=== PATIENT | female | born 1965 | race Two or more races ===

== ENCOUNTER 2017-02-27 23:29 | Emergency (ER) | payer OTHER ==
[2017-02-27] MEDS ORDERED: methylPREDNISolone SOD SUCC 125 MG/2 ML VIAL IVP ONE (23:46)
[2017-02-27] MEDS ORDERED: RANITIDINE 50 MG/2 ML VIAL IVP ONE (23:46)
[2017-02-27] MEDS ORDERED: NS 1,000 ML IV ONE (23:46)
--- NOTE | 2017-02-27 23:47 | EDPHY ---
H & P Time Seen by Provider: 02/27/17 23:42 HPI/ROS: This is a 51-year-old female presenting to the emergency department complaining of skin irritation and rash. Patient states her back was itching around 1500 today, since then the rash has worsening to her upper arms and her chest. Patient reports not sure which she came in contact with, denies any shortness of breath or wheezing. Has not taken any vmwa-tro-rfmdfiy medication. No other complaints REVIEW OF SYSTEMS: Constitutional: No fever chills Eyes: No blurred vision ENT: No sore throat Respiratory: No cough or shortness of breath Gastrointestinal: No nausea vomiting Skin: rash hives Neurological: No headache or dizziness Smoking Status: Never smoked Physical Exam: CONSTITUTIONAL: patient appeared well nourished, non-ill appearing and normally developed. No acute distress. Vital signs as documented. HEENT: Normocephalic atraumatic. Oropharynx normal no angioedema noted NECK: Supple, FROM without pain RESP: Non-labored resp effort, airway patent, CTAB CARDIAC: RRR w/o murmur, donis. Normal S1/S2 NEURO: AAOx3 SKIN: Diffuse hives noted to trunk and upper extremities PSYCH: Normal affect, calm, no distress, acting appropriate Constitutional: Initial Vital Signs Temperature (C) 36.5 C 02/27/17 23:32 Heart Rate 70 02/27/17 23:32 Respiratory Rate 16 02/27/17 23:32 Blood Pressure 130/83 H 02/27/17 23:32 O2 Sat (%) 98 02/27/17 23:32 O2 Delivery Mode Nasal Cannula Allergies/Adverse Reactions: No Known Allergies Allergy (Unverified 02/27/17 23:35) Home Medications: Medication Instructions Recorded predniSONE 50 mg PO DAILY #5 tablet 02/28/17 Medical Decision Making ED Course/Re-evaluation: Discussed plan of care: IV fluids, IV Solu-Medrol, IV Benadryl, IV ranitidine 0030: Re-evaluation, patient reports feeling better decrease in skin irritation no shortness of breath. 0035: I recommended when she gets home wash all of her clothes or any bedding that may have come into contact which caused the initial reaction. Discharge home---> stable, discussed discharge instructions with patient Differential Diagnosis: Differential diagnosis considered but not limited to anaphylaxis, angioedema and cellulitis - Data Points Medications Given: Discontinued Medications Diphenhydramine HCl (Benadryl Injection) 50 mg IVP EDNOW ONE Stop: 02/27/17 23:47 Last Admin: 02/28/17 00:06 Dose: 50 mg Sodium Chloride (Ns) 1,000 mls @ 0 mls/hr IV ONCE ONE PRN Reason: Wide Open Stop: 02/27/17 23:47 Last Admin: 02/28/17 00:06 Dose: 1,000 mls Methylprednisolone Sodium Succinate (Solu-Medrol) 125 mg IVP EDNOW ONE Stop: 02/27/17 23:47 Last Admin: 02/28/17 00:07 Dose: 125 mg Ranitidine HCl (Zantac) 50 mg IVP EDNOW ONE Stop: 02/27/17 23:47 Last Admin: 02/28/17 00:06 Dose: 50 mg Departure - Departure Disposition: Home, Routine, Self-Care Clinical Impression: Urticaria Allergic reaction Qualifiers: Encounter type: initial encounter Qualified Code(s): T78.40XA - Allergy, unspecified, initial encounter Condition: Good Instructions: Urticaria (ED), Cold Compress or Soak (ED), General Allergic Reaction (ED) Additional Instructions: 1. Continue taking Benadryl 25-50 mg every 6-8 hours as needed 2. You can also take Pepcid 40 mg daily for the next 5 days this access a histamine ojhana to decrease skin irritation 3. You have been given a prescription for prednisone this will help decrease the inflammatory response take this for the next 5 days 4. If any symptoms worsen such as: Increasing rash, shortness of breath, any facial swelling return to the emergency department Referrals: NONE *PRIMARY CARE P,. [Primary Care Provider] - As per Instructions [facility],. [Clinic] - As per Instructions Prescriptions: predniSONE 50 mg PO DAILY #5 tablet
[2017-02-28 00:56] VITALS: BP 121/87; PULSE 58; RESP 12; TEMP 98.2; O2SAT 96
== END 2017-02-28 00:49 | disposition home or self-care (01) ==
DX: L50.0 Allergic urticaria (principal)
CPT/HCPCS: 96374; J1200; J2780